=== PATIENT | male | born 1995 | race Caucasian/White ===

== ENCOUNTER 2021-06-14 17:22 | Emergency (ER) | payer MEDICAID, SELFPAY ==
[2021-06-14 18:17] VITALS: BP 124/74; PULSE 95; RESP 18; TEMP 36.9; O2SAT 99; BMI 24.4
--- NOTE | 2021-06-14 18:24 | W.ED.DENTAL ---
HPI - Dental/Oral General: Chief complaint: Dental/Oral Stated complaint: Severe toothache Time Seen by Provider: 06/14/21 17:48 Source: patient Mode of arrival: ambulatory Limitations: no limitations History of Present Illness: 25-year-old male states has been having right upper molar pain over the last 2 to 3 days he states he has an appointment with the dentist next week but states the pain is gotten worse throughout the night. He states that he has been told he needs to have a tooth pulled he denies any fever denies any trismus pain currently is a 7 out of 10 denies any worsening improving factors. Associated symptoms: Denies fever(s) Review of Systems Const: Denies: fever(s), chills, body aches or change in appetite Eyes: Denies: blurry vision or eye discomfort ENMT: Reports: dental pain Card: Denies: chest pain Resp: Denies: dyspnea GI: Denies: abdominal pain, nausea, vomiting or diarrhea : Denies: dysuria Musc: Denies: neck pain or back pain Skin/Breast: Denies: rash Neuro: Denies: headache(s) Psych: Denies: depression Alex/Lymph: Denies: easy bruising All/Imm: Denies: urticaria PFSH ED PFSH: Medical History Post traumatic stress disorder (PTSD) Per client report, further assessment needed Social History (Updated 06/14/21 @ 18:31 by Ranjit Price MD) Alcohol intake: unknown Physical Exam Const: COMMON NORMALS: no acute distress, patient oriented x3 and healthy appearing HENMT: COMMON NORMALS: normocephalic and atraumatic HEAD & SCALP: normocephalic and atraumatic OTHER: Poor dentition some tenderness over right upper molar no trismus no abscess noticed Eye: COMMON NORMALS: Equal, round and reactive pupils present and EOMs intact bilaterally PUPIL: Yes Equal, round and reactive pupils present Neck/C-Spine: COMMON NORMALS: full ROM and supple Chest: COMMONS NORMALS: normal inspection of the chest and normal palpation of entire chest wall Resp: COMMON NORMALS: normal respiratory effort, No retractions, No use of accessory muscles and clear to auscultation bilaterally AUSCULTATION: clear to auscultation bilaterally Cardio: COMMON NORMALS: regular rate, regular rhythm and No murmurs present (Cardio) RATE: regular rate RHYTHM: regular rhythm GI: COMMON NORMALS: Normal to inspection, nondistended, normoactive bowel sounds present, Soft to palpation, non-tender and no masses PALPATION: Yes Soft to palpation Extremity: COMMON NORMALS: normal to inspection and full ROM Neuro: COMMON NORMALS: patient oriented x3, moves all extremities and no focal motor deficits Psych: COMMON NORMALS: mental status grossly normal, Normal thought process present and cooperative THOUGHT PROCESS: Normal thought process present Skin: COMMON NORMALS: no rashes or lesions noted and no wounds GENERAL SKIN EXAM: no rashes or lesions noted Course Vital Signs: Vital signs: Vital Signs Temperature 98.5 F 06/14/21 18:17 Pulse Rate 95 06/14/21 18:17 Respiratory Rate 18 06/14/21 18:17 Blood Pressure 124/74 06/14/21 18:17 Pulse Oximetry 99 06/14/21 18:17 MDM - Dental/Oral Medical Decision Making Patient presents here with dental pain he has no abscess or trismus he has follow-up with dentist we will place him on antibiotics along with Naprosyn he is stable for discharge return if worsening. Discharge Plan Discharge Patient Disposition: Home Clinical Impression: Toothache Condition: Stable Prescriptions: New cephalexin 500 mg capsule 500 mg PO TID 7 Days Qty: 21 0RF naproxen [Naprosyn] 500 mg tablet 500 mg PO BID PRN (Reason: pain) Qty: 20 0RF Discharge Orders: Discharge ED (Routine); Ordered 06/14/21 Ordered By: Ranjit Price Discharge Diet: Advance as tolerated Discharge Activity: Resume usual activity Patient Instructions: Toothache (ED) Coding Level of Care Code ED Sap Business Intelligence Consultant for Manda Holguin
[2021-06-14] MEDS: HYDROcodone-acetaminophen 5-325 mg Tablet 1 TAB PO (18:30)
== END 2021-06-14 18:33 | disposition home or self-care (01) ==
PROVIDERS: Emergency Provider Emergency Medicine
DX: K08.89 Other specified disorders of teeth and supporting structures (principal)
CPT/HCPCS: 99283

== ENCOUNTER 2021-06-30 17:54 | Emergency (ER) | payer MEDICAID, SELFPAY ==
[2021-06-30 18:17] VITALS: BP 146/87; PULSE 89; RESP 18; TEMP 37.3; O2SAT 99; BMI 24.4
--- NOTE | 2021-06-30 18:30 | W.ED.DENTAL ---
HPI - Dental/Oral General: Chief complaint: Dental/Oral Stated complaint: Headache and tooth pain Time Seen by Provider: 06/30/21 18:30 History of Present Illness: 25-year-old male patient comes in with right side uppermost jaw pain secondary to a bad tooth. Patient reports pain been worse for the last 2 days. Patient appears nontoxic. Patient appears in mild to moderate pain. Review of Systems General: Reports: 10 or more systems reviewed and unremarkable except in HPI and below ENMT: Reports: dental pain Card: Denies: chest pain Resp: Denies: dyspnea GI: Denies: nausea or vomiting Skin/Breast: Denies: rash PFSH ED PFSH: Medical History (Updated 06/30/21 @ 18:36 by CONSUELO Souza) Post traumatic stress disorder (PTSD) Per client report, further assessment needed Psychiatric care Social History (Updated 06/14/21 @ 18:31 by Ranjit Price MD) Alcohol intake: unknown Physical Exam Const: COMMON NORMALS: alert HENMT: COMMON NORMALS: normocephalic HEAD & SCALP: normocephalic TEETH & GINGIVA: Yes poor dentition THROAT: posterior oropharynx normal Resp: COMMON NORMALS: normal respiratory effort Cardio: COMMON NORMALS: regular rate RATE: regular rate Extremity: COMMON NORMALS: normal to inspection Neuro: SENSORIUM/ORIENTATION: Yes alert Skin: COMMON NORMALS: no rashes or lesions noted GENERAL SKIN EXAM: no rashes or lesions noted Course Vital Signs: Vital signs: Vital Signs Temperature 99.1 F 06/30/21 18:17 Pulse Rate 89 06/30/21 18:17 Respiratory Rate 18 06/30/21 18:17 Blood Pressure 146/87 06/30/21 18:17 Pulse Oximetry 99 06/30/21 18:17 MDM - Dental/Oral Medical Decision Making 25-year-old male comes in today for complaints of right upper molar pain. Patient reports a fractured tooth and decay which occasionally will give him pain. Patient reports for the last 2 days he has had increasing pain and discomfort. On exam patient has poor dentition with a significantly decayed molar to the right upper jaw. It appears to be the third molar. No significant swelling or redness is noted. Posterior pharynx is normal. Differential diagnosis includes dental pain, dental abscess, malingering. No signs of serious infection was noted. Patient was started on Augmentin 1 tablet twice a day for 7 days. Patient was written for short course of hydrocodone and viscous lidocaine. Patient was recommended to follow-up with dentist for further care. Patient reported understanding. Discharge Plan Discharge Patient Disposition: Home Clinical Impression: Toothache Condition: Stable Prescriptions: New amoxicillin-pot clavulanate 875-125 mg tablet 1 tab PO BID Qty: 14 0RF Lidocaine Viscous 2 % solution 10 ml mucous membrane Q3H PRN (Reason: pain) Qty: 100 0RF diclofenac potassium 50 mg tablet 50 mg PO Q8H PRN (Reason: pain) Qty: 10 0RF hydrocodone-acetaminophen 5-325 mg tablet 1 tab PO Q6H PRN (Reason: pain) Qty: 6 0RF No Action buprenorphine-naloxone [Suboxone] 4-1 mg film 1 film sublingual DAILY 0RF paroxetine HCl [Paxil] 20 mg tablet 20 mg PO DAILY 0RF hydroxyzine HCl 50 mg tablet 50 mg PO TID 0RF baclofen 10 mg tablet 10 mg PO DAILY 0RF Naprosyn 500 mg tablet 500 mg PO BID PRN (Reason: pain) Qty: 20 0RF Discharge Orders: Discharge ED (Routine); Ordered 06/30/21 Ordered By: Jose Manuel Hamilton Discharge Diet: Usual diet Discharge Activity: Increase activity as tolerated Patient Instructions: Toothache (ED) Activity Restrictions/Additional Instructions: Take medications as directed. Drink plenty of water with medicine. Follow-up with primary care for further instruction. Return to ER for new concerns. Coding Level of Care Code ED Relief Docking Master for Manda Holguin
[2021-06-30] MEDS: amoxicillin-clav 875-125 mg Tablet 1 TAB PO (18:52)
[2021-06-30] MEDS: lidocaine 2% viscous 15 mL UDC 10 ML MUCOUS MEM (18:52)
== END 2021-06-30 18:53 | disposition home or self-care (01) ==
PROVIDERS: Emergency Provider Nurse Practitioner Family
DX: K08.89 Other specified disorders of teeth and supporting structures (principal)
CPT/HCPCS: 99283

== ENCOUNTER → 2021-07-24 14:44 | Outpatient (BNVA) | payer OTHER, MEDICAID, SELFPAY | PROVIDERS: Visit Provider Counselor Mental Health | DX: F33.1 Major depressive disorder, recurrent, moderate (principal); F15.21 Other stimulant dependence, in remission | CPT/HCPCS: 90834 ==

== ENCOUNTER → 2021-08-05 15:39 | Outpatient (BNVA) | payer OTHER, MEDICAID, SELFPAY | PROVIDERS: Visit Provider Counselor Mental Health | DX: F33.1 Major depressive disorder, recurrent, moderate (principal); F15.21 Other stimulant dependence, in remission | CPT/HCPCS: 90834 ==

== ENCOUNTER → 2021-08-10 13:28 | Outpatient (BNVA) | payer OTHER, SELFPAY | PROVIDERS: Visit Provider Psychiatry & Neurology Psychiatry | DX: F41.1 Generalized anxiety disorder (principal); F33.1 Major depressive disorder, recurrent, moderate; F11.20 Opioid dependence, uncomplicated; Z79.899 Other long term (current) drug therapy; F15.20 Other stimulant dependence, uncomplicated | CPT/HCPCS: 80307; 99204 ==

== ENCOUNTER 2021-09-07 06:38 | Day surgery (SDC) | payer MEDICAID, SELFPAY ==
[2021-09-04 10:00] VITALS: BMI 22.9
--- NOTE | 2021-09-07 05:57 | P.ANESASSM_ITS ---
Pre-Anesthetic Assessment Height/Weight: Height 1.85 m Weight 78.925 kg Preop Diagnosis: coffee ground Operation Date: 09/07/21 08:15 Proposed Procedures p EGD 79642 K92.0(Not Applicable) - Fan Leblanc MD Familial anesthetic complications: none Last intake: Beta carl held for 2 days Social Tobacco (Vapes) and No alcohol Hx of methamphetamine use disorder and opioid use disorder severe Exam alert, oriented x 3, clear to auscultation bilaterally and regular rate & rhythm Airway Submandibular: within normal limits Mallampati: Class II Dentition: chipped Comments: Comments: Missing most teeth, very poor dentition Pulmonary None reported CV/HEM None reported None reported Hepatic None reported GI Gastroesophageal Reflux Disease (Well controlled) Coffee ground emesis Metabolic None reported Musc/skel None reported Neuropsych Anxiety and Depression Hx of PTSD Anesthetic Plan ASA status: 3 (26 year old male with hx of smoking, methampheatamine and opioid abuse with depression and anxiety with recent coffee ground emesis ) Anesthesia: Anesthesia Evaluation, General and MAC Other: I discussed with the patient risks, goals, and benefits of MAC and general anesthesia. We discussed spectrum of MAC anesthesia including conversion to general as well as possibility of recall of intraoperative stimuli including discomfort/pain. Patient agrees to proceed with MAC. Medications/Allergies Home Medications Medication Instructions Recorded Confirmed Last Taken Type baclofen 10 mg tablet 10 mg PO DAILY 06/30/21 09/04/21 09/05/21 History buprenorphine 8 mg-naloxone 2 mg 1.5 tab SUBLINGUAL DAILY #45 tab 08/10/21 09/04/21 09/06/21 Rx sublingual tablet propranolol 20 mg tablet 20 mg PO BID PRN #60 tab 08/10/21 09/04/21 09/05/21 Rx omeprazole 40 mg capsule,delayed 40 mg PO DAILY #30 cap 09/02/21 09/04/21 09/05/21 Rx release paroxetine HCl 40 mg tablet (Paxil) 40 mg PO DAILY 09/07/21 09/04/21 09/06/21 History Allergies Allergy/AdvReac Type Severity Reaction Status Date / Time lactase AdvReac Intermediate ADR-Diarrhea Verified 09/03/21 13:36 & constipation [facility] Anesthesia Medical History Post traumatic stress disorder (PTSD) Per client report, further assessment needed Psychiatric care Social History Smoking and tobacco status: current every day smoker (vape) e-cigarettes E- Cigarette Details: vaporizer device and with nicotine E-cig/vape details: Refill/ 2 - 3 days. Quit status (tobacco): has tried quititng Number of times tried to quit tobacco: 2 Second hand smoke exposure: No Alcohol intake: former Year of sobriety/quit date alcohol: 2020 Data Anesthesia Cardiac Studies: No Data to Display
[2021-09-07 06:56] VITALS: BP 137/95; PULSE 76; RESP 16; TEMP 36.6; O2SAT 99
[2021-09-07] MEDS: sodium chloride 0.9% 1,000 ML 30 ML IV (07:02)
--- NOTE | 2021-09-07 07:16 | P.HP_ITS ---
Same Day Surgery H&P Indication for Procedure/HPI DATE OF PROCEDURE: September 07, 2021 CHIEF COMPLAINT/INDICATIONFOR SURGICAL PROCEDURE: Hematemesis PREOP DIAGNOSIS: Coffee ground emesis. PLANNED PROCEDURE: Operation Date: 09/07/21 08:15 Proposed Procedures p EGD 53740 K92.0(Not Applicable) - Fan Leblanc MD Medications/Allergies* Home Medications Medication Instructions Recorded Confirmed Type baclofen 10 mg tablet 10 mg PO DAILY 06/30/21 09/04/21 History paroxetine HCl 40 mg tablet (Paxil) 40 mg PO DAILY 09/07/21 09/04/21 History Allergies/Adverse Reactions Allergy/AdvReac Type Severity Reaction Status Date / Time lactase AdvReac Intermediate ADR-Diarrhea Verified 09/03/21 13:36 & constipation Current Medications: Generic Name Dose Route Start Last Admin Trade Name Freq PRN Reason Stop Dose Admin Sodium Chloride 1,000 mls @ 30 mls/hr 09/07/21 07:00 09/07/21 07:02 Sodium Chloride 0.9% IV 09/08/21 06:59 30 mls/hr .Q24H GARCÍA Administration Pertinent History/Comorbid Conditions* Medical History (Updated 09/03/21 @ 13:54 by Fan Leblanc MD) Post traumatic stress disorder (PTSD) Per client report, further assessment needed Psychiatric care Social History Smoking and tobacco status: current every day smoker (vape) e-cigarettes E- Cigarette Details: vaporizer device and with nicotine E-cig/vape details: Refill/ 2 - 3 days. Quit status (tobacco): has tried quititng Number of times tried to quit tobacco: 2 Second hand smoke exposure: No Alcohol intake: former Year of sobriety/quit date alcohol: 2020 Pertinent Exam Findings alert, oriented x 3, clear to auscultation bilaterally, regular rate & rhythm, operative site marked and procedure specific exam findings Recommendations Surgery/Procedure today Coding Level of Care Code Acute Technical Support Technician for Manda Holguin
[2021-09-07 08:36] VITALS: BP 121/79; PULSE 74; RESP 14; TEMP 36.3; O2SAT 96
[2021-09-07 08:49] VITALS: BP 116/76; PULSE 75; RESP 18; O2SAT 97
--- NOTE | 2021-09-07 13:39 | ANE.PACU2 ---
Inpatient post-anesthesia follow up: Airway intact: Yes Vital signs: Temperature 97.4 F Pulse Rate 75 Respiratory Rate 18 Blood Pressure 116/76 Pulse Oximetry 97 Oxygen Delivery Me thod Room Air Oxygen Flow Rate Fraction of Inspir ed Oxygen Hydration adequate: Yes Nausea and vomiting: No Pain level: 1 Mental status: Baseline
[2021-09-08 10:46] LABS: H. Pylori / CLO Test Negative
== END 2021-09-07 08:58 | disposition home or self-care (01) ==
PROVIDERS: Visit Provider Internal Medicine
PROC: 0DJ08ZZ Inspection of Upper Intestinal Tract, Via Natural or Artificial Opening Endoscopic (ICD-10-PCS; CPT 43235; principal; 2021-09-07 08:15)
DX: K92.0 Hematemesis (principal); F17.290 Nicotine dependence, other tobacco product, uncomplicated; K21.00 Gastro-esophageal reflux disease with esophagitis, without bleeding; K29.70 Gastritis, unspecified, without bleeding
CPT/HCPCS: 43239; 87077; J2704; J7030

== ENCOUNTER → 2021-09-08 15:15 | Outpatient (BNVA) | payer OTHER, SELFPAY | PROVIDERS: Visit Provider Psychiatry & Neurology Psychiatry | DX: F11.20 Opioid dependence, uncomplicated (principal); Z79.899 Other long term (current) drug therapy; F33.1 Major depressive disorder, recurrent, moderate; F15.20 Other stimulant dependence, uncomplicated; F41.1 Generalized anxiety disorder | CPT/HCPCS: 80307 ==

== ENCOUNTER 2021-10-23 15:31 | Emergency (ER) | payer MEDICAID, SELFPAY ==
[2021-10-23 16:05] VITALS: BP 129/62; PULSE 102; RESP 16; TEMP 36.9; O2SAT 97; BMI 24.4
[2021-10-23 18:07] LABS: SARS Covid-2 Antigen Negative (Negative)
--- NOTE | 2021-10-23 18:27 | ED_ITS ---
HPI - Weakness General: Chief complaint: Weakness Stated complaint: Covid symptoms, not been tested yet Time Seen by Provider: 10/23/21 18:20 History of Present Illness: Patient is a 26-year-old male comes to the ED with headache, body aches and nausea. Symptoms started 2 days ago. Today patient said he is feeling better and is able to keep p.o. food and fluids down. Endorses having fevers as well. Denies any cough or shortness of breath. He stated that today he feels a lot better than he did 2 days ago. Associated symptoms: Reports fever(s), nausea and vomiting; Denies chest pain, chills, dysuria or headache(s) Review of Systems Const: Reports: fever(s) and body aches; Denies: chills or fatigue Eyes: Denies: change in vision or eye discomfort ENMT: Denies: throat pain, odynophagia, nasal discharge or nasal congestion Card: Denies: chest pain, palpitations, edema, swelling of feet/ankles, dyspnea on exertion or orthopnea Resp: Denies: dyspnea, productive cough or non-productive cough GI: Reports: nausea and vomiting; Denies: abdominal pain, diarrhea, constipation or hematochezia : Denies: flank pain, difficulty urinating, dysuria or hematuria Musc: Denies: neck pain, back pain or extremity swelling Skin/Breast: Denies: rash or new lesions Neuro: Denies: headache(s), numbness in extremities or weakness in extremities PFSH ED PFSH: Medical History Post traumatic stress disorder (PTSD) Per client report, further assessment needed Psychiatric care Social History Smoking and tobacco status: current every day smoker (vape) e-cigarettes E- Cigarette Details: vaporizer device and with nicotine E-cig/vape details: Refill/ 2 - 3 days. Quit status (tobacco): has tried quititng Number of times tried to quit tobacco: 2 Second hand smoke exposure: No Smoking risk assessment/counseling performed?: No Alcohol intake: former Year of sobriety/quit date alcohol: 2020 Desire information about alcohol rehabilitation?: No Counseling given: No Desire information about substance/drug rehabilitation?: No Counseling given: No Physical Exam Const: COMMON NORMALS: no acute distress, patient oriented x3, healthy appearing and alert GENERAL APPEARANCE: cooperative and comfortable HENMT: COMMON NORMALS: normocephalic HEAD & SCALP: normocephalic MOUTH: Normal oral and palatal mucosa present THROAT: posterior oropharynx normal and uvula midline Neck/C-Spine: COMMON NORMALS: supple GENERAL: Yes normal visual inspection Resp: COMMON NORMALS: normal respiratory effort, No retractions, No use of accessory muscles and clear to auscultation bilaterally AUSCULTATION: clear to auscultation bilaterally Cardio: COMMON NORMALS: regular rate, regular rhythm, S1 normal heart sound present, S2 normal heart sound present, No gallops present (Cardio), No clicks present (Cardio), No murmurs present (Cardio) and Peripheral pulses 2+ throughout RATE: regular rate RHYTHM: regular rhythm HEART SOUNDS: S1 normal heart sound present and S2 normal heart sound present PERIPHERAL PULSES: Peripheral pulses 2+ throughout GI: COMMON NORMALS: Normal to inspection, nondistended, normoactive bowel sounds present, Soft to palpation, non-tender and no masses PALPATION: Yes Soft to palpation : COMMON NORMALS: Yes no CVA tenderness BLADDER/KIDNEY EXAM: Yes no CVA tenderness Back/Pelvis: COMMON NORMALS: no CVA tenderness Extremity: COMMON NORMALS: normal to inspection Neuro: COMMON NORMALS: patient oriented x3 SENSORIUM/ORIENTATION: Yes alert GAIT: Yes Normal gait present Skin: GENERAL SKIN EXAM: dry skin Course Vital Signs: Vital signs: Vital Signs Temperature 98.5 F 10/23/21 16:05 Pulse Rate 102 H 10/23/21 16:05 Respiratory Rate 16 10/23/21 16:05 Blood Pressure 129/62 10/23/21 16:05 Pulse Oximetry 97 10/23/21 16:05 Oxygen Delivery Me thod 10/23/21 16:05 MDM - Weakness Medical Decision Making Patient is a 26-year-old male comes to the ED with fever, headache, body aches and nausea and vomiting. Symptoms started 2 days ago. Today he is feeling a lot better but is needing a COVID test. Denies any cough or shortness of breath. Vitals are stable. Patient appears nontoxic in no acute distress or pain. Rest of exam is benign. COVID test was negative. Patient was stable for discharge home and diagnosed with viral syndrome. Told to follow-up with PCP in the next week for reevaluation. Return to ED precautions given. Patient understood agree with plan. Lab Data I reviewed the patient's lab results. Laboratory Results SARS-CoV-2 Ag (Rapid) Negative (Negative) 10/23/21 17:11 Discharge Plan Discharge Patient Disposition: Home Clinical Impression: Viral syndrome Condition: Stable Prescriptions: No Action baclofen 10 mg tablet 10 mg PO DAILY Qty: 30 2RF Paxil 40 mg tablet 40 mg PO DAILY Qty: 30 2RF buprenorphine-naloxone 8-2 mg tablet, sublingual 1.5 tab sublingual DAILY Qty: 45 2RF pantoprazole 40 mg tablet,delayed release (DR/EC) 40 mg PO DAILY Qty: 90 8RF Discharge Orders: Discharge ED (Routine); Ordered 10/23/21 Ordered By: Todd Vieira Discharge Diet: Regular Discharge Activity: Resume usual activity Patient Instructions: Viral Syndrome (ED) Activity Restrictions/Additional Instructions: Follow-up with medical provider as directed in the next 5 to 7 days for reevaluation. Take [id number] Tylenol or Motrin for any fevers. Return to the ER or your medical provider if condition worsens. Please read and understand discharge instructions. Thank you for choosing [facility] for your healthcare needs today. Please realize this is an emergency room and that we are providing you with a medical screening exam and this may not be complete and all inclusive of all the testing and or work up that you may need to determine your ailment or severity of your illness. It is very important that you follow up as instructed or that you return to the Emergency Department should you have concerns or if your condition changes or worsens in any way. Coding Level of Care Code ED Hydrotel Operator for Manda Holguin Exam Comprehensive
== END 2021-10-23 18:35 | disposition home or self-care (01) ==
PROVIDERS: Physician Assistant; Emergency Provider Physician Assistant
DX: B34.9 Viral infection, unspecified (principal); Z20.822 Contact with and (suspected) exposure to COVID-19; F17.290 Nicotine dependence, other tobacco product, uncomplicated
CPT/HCPCS: 87426; 99282

== ENCOUNTER → 2021-12-01 16:06 | Outpatient (BNVA) | payer MEDICAID, SELFPAY | PROVIDERS: Visit Provider Psychiatry & Neurology Psychiatry | DX: F11.20 Opioid dependence, uncomplicated (principal); Z79.899 Other long term (current) drug therapy; F15.20 Other stimulant dependence, uncomplicated; F41.1 Generalized anxiety disorder; F33.1 Major depressive disorder, recurrent, moderate | CPT/HCPCS: 80307 ==

== ENCOUNTER 2022-01-07 16:37 | Emergency (ER) | payer MEDICAID, SELFPAY ==
[2022-01-07 16:43] VITALS: BP 121/71; PULSE 110; RESP 16; O2SAT 98
[2022-01-07] MEDS: ondansetron 4 MG Tablet PO (17:26)
[2022-01-07 17:34] LABS: Rapid Strep A Test Negative (Negative)
[2022-01-07 17:39] LABS: Influenza A by IFA negative (Negative); Influenza B by IFA negative (Negative)
[2022-01-07 17:43] LABS: SARS Covid-2 Antigen Negative (Negative)
--- NOTE | 2022-01-07 17:48 | XRR_ITS ---
PROCEDURE INFORMATION: Exam: XR Chest Exam date and time: 01/07/2022 7:02 PM Age: 26 years old Clinical indication: Cough TECHNIQUE: Imaging protocol: Radiologic exam of the chest. Views: 1 view. COMPARISON: No relevant prior studies available. FINDINGS: Lungs: Unremarkable. No consolidation. Pleural spaces: Unremarkable. No pleural effusion. No pneumothorax. Heart/Mediastinum: Unremarkable. No cardiomegaly. Bones/joints: Unremarkable. XR/XR chest 1V portable [id number] IMPRESSION: No acute findings.
--- NOTE | 2022-01-07 22:06 | ED_ITS ---
HPI - Nausea/Vomiting/Diarrhea General: Chief complaint: Nausea/Vomiting/Diarrhea Stated complaint: Sick, some worse than others Time Seen by Provider: 01/07/22 16:50 History of Present Illness: Patient was ama [facility] ED PFSH: Medical History Post traumatic stress disorder (PTSD) Per client report, further assessment needed Psychiatric care Social History (Updated 12/29/21 @ 10:28 by Freddy Olivares LPN) Smoking and tobacco status: current every day smoker (vape) e-cigarettes E- Cigarette Details: vaporizer device and with nicotine E-cig/vape details: Refill/ 2 - 3 days. Quit status (tobacco): has tried quititng Number of times tried to quit tobacco: 2 Second hand smoke exposure: No Smoking risk assessment/counseling performed?: No Alcohol intake: former Year of sobriety/quit date alcohol: 2020 Desire information about alcohol rehabilitation?: No Counseling given: No Desire information about substance/drug rehabilitation?: No Counseling given: No Course Vital Signs: Vital signs: Vital Signs Pulse Rate 110 H 01/07/22 16:43 Respiratory Rate 16 01/07/22 16:43 Blood Pressure 121/71 01/07/22 16:43 Pulse Oximetry 98 01/07/22 16:43 Oxygen Delivery Me thod 01/07/22 16:43 MDM - Nausea/Vomiting/Diarrhea Medical Decision Making AMA Lab Data Radiology Impressions Chest X-Ray 01/07/22 17:48 IMPRESSION: No acute findings. Laboratory Results Influenza Type A Ag negative (Negative) 01/07/22 17:00 Influenza Type B Ag negative (Negative) 01/07/22 17:00 SARS-CoV-2 Ag (Rapid) Negative (Negative) 01/07/22 17:00 Group A Strep Rapid Negative (Negative) 01/07/22 17:00 Discharge Plan Discharge Patient Disposition: Left Against Medical Advice Clinical Impression: Coffee ground emesis Prescriptions: No Action Paxil 40 mg tablet 40 mg PO DAILY Qty: 30 2RF baclofen 10 mg tablet 10 mg PO DAILY Qty: 30 2RF buprenorphine-naloxone 8-2 mg tablet, sublingual 2 tab sublingual DAILY Qty: 60 1RF pantoprazole 40 mg tablet,delayed release (DR/EC) 40 mg PO DAILY Qty: 90 8RF Coding Level of Care Code ED Game Warden for Manda Holguin
== END 2022-01-07 18:39 | disposition left against medical advice (07) ==
PROVIDERS: Emergency Provider Registered Nurse
DX: F17.290 Nicotine dependence, other tobacco product, uncomplicated (principal)
CPT/HCPCS: 71045; 87081; 87426; 87804; 87880; 99284; Q0162

== ENCOUNTER 2022-01-08 19:58 | Emergency (ER) | payer MEDICAID, SELFPAY ==
[2022-01-08 20:05] VITALS: PULSE 110; RESP 16; TEMP 36.8; O2SAT 97
--- NOTE | 2022-01-08 20:57 | ED_ITS ---
HPI - Nausea/Vomiting/Diarrhea General: Chief complaint: Nausea/Vomiting/Diarrhea Stated complaint: N/V Time Seen by Provider: 01/08/22 20:53 Source: patient Mode of arrival: ambulatory Limitations: no limitations History of Present Illness: 26-year-old male states he been having nausea vomiting over the last 2 to 3 days. He states has not been able to tolerate any p.o.'s been having some abdominal cramping he denies any fevers he denies any worsening proving factors. He denies any severe abdominal pain. Associated nausea: Yes Associated symtoms: Reports nausea; Denies chest pain, dysuria or headache(s) Review of Systems Const: Denies: fever(s), chills, body aches or change in appetite Eyes: Denies: blurry vision or eye discomfort ENMT: Denies: throat pain or dental pain Card: Denies: chest pain Resp: Denies: dyspnea GI: Reports: nausea and vomiting : Denies: dysuria Musc: Denies: neck pain or back pain Skin/Breast: Denies: rash Neuro: Denies: headache(s) Psych: Denies: depression Alex/Lymph: Denies: easy bruising All/Imm: Denies: urticaria PFSH ED PFSH: Medical History Post traumatic stress disorder (PTSD) Per client report, further assessment needed Psychiatric care Social History Smoking and tobacco status: current every day smoker (vape) e-cigarettes E- Cigarette Details: vaporizer device and with nicotine E-cig/vape details: Refill/ 2 - 3 days. Quit status (tobacco): has tried quititng Number of times tried to quit tobacco: 2 Second hand smoke exposure: No Smoking risk assessment/counseling performed?: No Alcohol intake: former Year of sobriety/quit date alcohol: 2020 Desire information about alcohol rehabilitation?: No Counseling given: No Desire information about substance/drug rehabilitation?: No Counseling given: No Physical Exam Const: COMMON NORMALS: no acute distress, patient oriented x3 and healthy appearing HENMT: COMMON NORMALS: normocephalic and atraumatic HEAD & SCALP: normocephalic and atraumatic Eye: COMMON NORMALS: Equal, round and reactive pupils present and EOMs intact bilaterally PUPIL: Yes Equal, round and reactive pupils present Neck/C-Spine: COMMON NORMALS: full ROM and supple Chest: COMMONS NORMALS: normal inspection of the chest and normal palpation of entire chest wall Resp: COMMON NORMALS: normal respiratory effort, No retractions, No use of accessory muscles and clear to auscultation bilaterally AUSCULTATION: clear to auscultation bilaterally Cardio: COMMON NORMALS: regular rate, regular rhythm and No murmurs present (Cardio) RATE: regular rate RHYTHM: regular rhythm GI: COMMON NORMALS: Normal to inspection, nondistended, normoactive bowel soun ds present, Soft to palpation, non-tender and no masses PALPATION: Yes Soft to palpation Extremity: COMMON NORMALS: normal to inspection and full ROM Neuro: COMMON NORMALS: patient oriented x3, moves all extremities and no focal motor deficits Psych: COMMON NORMALS: mental status grossly normal, Normal thought process present and cooperative THOUGHT PROCESS: Normal thought process present Skin: COMMON NORMALS: no rashes or lesions noted and no wounds GENERAL SKIN EXAM: no rashes or lesions noted Course Vital Signs: Vital signs: Vital Signs Temperature 98.2 F 01/08/22 22:24 Pulse Rate 86 01/08/22 22:06 Respiratory Rate 16 01/08/22 22:06 Blood Pressure 120/72 01/08/22 22:06 Pulse Oximetry 98 01/08/22 22:06 Oxygen Delivery Me thod 01/08/22 21:37 MDM - Nausea/Vomiting/Diarrhea Medical Decision Making Patient presents here with vomiting along with diarrhea likely has a gastroenteritis he is well-appearing here abdominal exam is benign his blood work is normal no signs of acute surgical abdomen he is stable for discharge he is able tolerate p.o. here after meds we will prescribe him Zofran for home. Lab Data 01/08/22 21:00 01/08/22 21:00 Laboratory Results WBC 11.5 10^3/uL (4.0-10.0) H 01/08/22 21:00 RBC 5.44 10^6/uL (4.1-5.3) H 01/08/22 21:00 Hgb 16.2 g/dL (11.7-16.6) 01/08/22 21:00 Hct 46.4 % (42.0-52.0) 01/08/22 21:00 MCV 85.3 fl (80-94) 01/08/22 21:00 MCH 29.8 pg (28.0-34.0) 01/08/22 21:00 MCHC 34.9 g/dL (30.0-36.0) 01/08/22 21:00 RDW 11.6 % (12.1-15.1) L 01/08/22 21:00 Plt Count 457 10^3/cmm (130-400) H 01/08/22 21:00 MPV 9.0 fL (7.4-10.4) 01/08/22 21:00 Neut % (Auto) 79.5 % 01/08/22 21:00 Lymph % (Auto) 14.0 % 01/08/22 21:00 [place] % (Auto) 5.9 % 01/08/22 21:00 Eos % (Auto) 0.0 % 01/08/22 21:00 Baso % (Auto) 0.3 % 01/08/22 21:00 Neut # (Auto) 9.17 10^3/uL (1.8-7.7) H 01/08/22 21:00 Lymph # (Auto) 1.6 10^3/uL (0.8-4.8) 01/08/22 21:00 [place] # (Auto) 0.7 10^3/uL (0.2-0.9) 01/08/22 21:00 Eos # (Auto) 0.0 10^3/uL (0.0-0.8) 01/08/22 21:00 Baso # (Auto) 0.0 10^3/uL (0.0-0.1) 01/08/22 21:00 Nucleated RBC % (auto) 0 % 01/08/22 21:00 Nucleated RBCs # 0.0 /100WBC 01/08/22 21:00 Sodium 141 mmol/L (136-145) 01/08/22 21:00 Potassium 3.9 mmol/L (3.5-5.1) 01/08/22 21:00 Chloride 99 mmol/L (98-107) 01/08/22 21:00 Carbon Dioxide 26 mmol/L (22-29) 01/08/22 21:00 Anion Gap 19.9 (5-19) H 01/08/22 21:00 BUN 21 mg/dL (6-20) H 01/08/22 21:00 Creatinine 0.9 mg/dL (0.7-1.2) 01/08/22 21:00 GFR Calculation 101.2 mL/min (90-130) 01/08/22 21:00 Glucose 90 mg/dL (65-115) 01/08/22 21:00 Calculated Osmolality 295 mOsm/kg (285-295) 01/08/22 21:00 Calcium 10.4 mg/dL (8.5-10.5) 01/08/22 21:00 Total Bilirubin 0.4 mg/dL (0.15-1.2) 01/08/22 21:00 AST 19 U/L (0-40) 01/08/22 21:00 ALT 24 U/L (0-41) 01/08/22 21:00 Alkaline Phosphatase 125 U/L (40-130) 01/08/22 21:00 Total Protein 9.0 g/dL (6.6-8.7) H 01/08/22 21:00 Albumin 4.9 g/dL (3.5-5.2) 01/08/22 21:00 Globulin 4.1 g/dL (1.3-4.6) 01/08/22 21:00 Lipase 20 U/L (13-60) 01/08/22 21:00 Discharge Plan Discharge Patient Disposition: Home Clinical Impression: Vomiting Qualifiers: Vomiting type: unspecified Nausea presence: with nausea Qualified Code(s): R11.2 - Nausea with vomiting, unspecified Condition: Stable Prescriptions: New ondansetron 4 mg tablet,disintegrating 4 mg PO Q6H PRN (Reason: nausea and vomiting) Qty: 14 0RF No Action Paxil 40 mg tablet 40 mg PO DAILY Qty: 30 2RF baclofen 10 mg tablet 10 mg PO DAILY Qty: 30 2RF buprenorphine-naloxone 8-2 mg tablet, sublingual 2 tab sublingual DAILY Qty: 60 1RF pantoprazole 40 mg tablet,delayed release (DR/EC) 40 mg PO DAILY Qty: 90 8RF Discharge Orders: Discharge ED (Routine); Ordered 01/08/22 Ordered By: Korby Dee Discharge Diet: Advance as tolerated Discharge Activity: Resume usual activity Patient Instructions: Acute Nausea and Vomiting (ED) Stand Alone Forms: Work/School Release Coding Level of Care Code ED Claims Collector for Manda Fwd Exam Comprehensive
[2022-01-08 21:08] LABS: Basophils % 0.3 %; Hematocrit 46.4 % (42.0-52.0); Hemoglobin 16.2 g/dL (11.7-16.6); Lymphocytes # 1.6 10^3/uL (0.8-4.8); Mean Corpuscular HGB Conc 34.9 g/dL (30.0-36.0); Mean Corpuscular Hemoglobin 29.8 pg (28.0-34.0); Mean Corpuscular Volume 85.3 fl (80-94); Monocytes # 0.7 10^3/uL (0.2-0.9); Monocytes % 5.9 %; Neutrophils # 9.17 10^3/uL (1.8-7.7); Neutrophils % 79.5 %; Nucleated Red Blood Cells % 0 %; Platelet Count 457 10^3/cmm (130-400); Red Blood Count 5.44 10^6/uL (4.1-5.3); Red Cell Distribution Width 11.6 % (12.1-15.1); White Blood Count 11.5 10^3/uL (4.0-10.0)
[2022-01-08] MEDS: sodium chloride 0.9% 1,000 ML 999 ML IV (21:33)
[2022-01-08] MEDS: ondansetron 2 mg/ML SDV 2 mL 4 MG IVP (21:35)
[2022-01-08 21:37] VITALS: BP 130/76; PULSE 68; RESP 16; O2SAT 99
[2022-01-08 21:38] LABS: Alanine Aminotransferase 24 U/L (0-41); Albumin Level 4.9 g/dL (3.5-5.2); Alkaline Phosphatase 125 U/L (40-130); Anion Gap 19.9 (5-19); Aspartate Amino Transferase 19 U/L (0-40); Blood Urea Nitrogen 21 mg/dL (6-20); Calcium 10.4 mg/dL (8.5-10.5); Carbon Dioxide 26 mmol/L (22-29); Chloride 99 mmol/L (98-107); Globulin 4.1 g/dL (1.3-4.6); Glomerular Filtration Rate 101.2 mL/min (90-130); Glucose 90 mg/dL (65-115); Lipase 20 U/L (13-60); Osmolality Calculated 295 mOsm/kg (285-295); Potassium 3.9 mmol/L (3.5-5.1); Sodium 141 mmol/L (136-145); Total Bilirubin 0.4 mg/dL (0.15-1.2)
[2022-01-08] MEDS: diphenhydrAMINE 50 mg/mL SDV 1mL IVP (21:59)
[2022-01-08] MEDS: metoclopramide 5 mg/mL SDV 2 mL 10 MG IVP (21:59)
[2022-01-08 22:06] VITALS: BP 120/72; PULSE 86; RESP 16; O2SAT 98
[2022-01-08 22:24] VITALS: TEMP 36.8
[2022-01-08 22:36] VITALS: BP 120/72; PULSE 72; RESP 16; TEMP 36.8; O2SAT 100
== END 2022-01-08 22:33 | disposition home or self-care (01) ==
PROVIDERS: Emergency Provider Emergency Medicine
DX: R11.2 Nausea with vomiting, unspecified (principal); F17.290 Nicotine dependence, other tobacco product, uncomplicated
CPT/HCPCS: 80053; 83690; 85025; 96374; 96375; 99284; J1200; J2405; J2765; J7030

== ENCOUNTER → 2022-02-12 11:10 | Outpatient (BNVA) | payer MEDICAID, SELFPAY | PROVIDERS: PCP Family Medicine; Visit Provider Family Medicine | DX: K27.9 Peptic ulcer, site unspecified, unspecified as acute or chronic, without hemorrhage or perforation (principal); K21.9 Gastro-esophageal reflux disease without esophagitis; F41.1 Generalized anxiety disorder; F32.9 Major depressive disorder, single episode, unspecified; F15.21 Other stimulant dependence, in remission; Z79.899 Other long term (current) drug therapy; F11.91 Opioid use, unspecified, in remission | CPT/HCPCS: 80053; 85025 ==

== ENCOUNTER → 2022-03-02 14:37 | Outpatient (BNVA) | payer OTHER, SELFPAY | PROVIDERS: PCP Family Medicine; Visit Provider Psychiatry & Neurology Psychiatry | DX: Z79.899 Other long term (current) drug therapy (principal); F11.20 Opioid dependence, uncomplicated; F15.20 Other stimulant dependence, uncomplicated | CPT/HCPCS: 80307 ==

== ENCOUNTER → 2022-04-13 13:59 | Outpatient (BNVA) | payer OTHER, SELFPAY | PROVIDERS: PCP Family Medicine; Visit Provider Psychiatry & Neurology Psychiatry | DX: F11.91 Opioid use, unspecified, in remission (principal); F41.1 Generalized anxiety disorder; F32.9 Major depressive disorder, single episode, unspecified; F15.21 Other stimulant dependence, in remission; Z79.899 Other long term (current) drug therapy | CPT/HCPCS: 80307 ==

== ENCOUNTER 2022-05-06 20:01 | Emergency (ER) | payer MEDICAID, SELFPAY ==
[2022-05-06 20:09] VITALS: BP 139/93; PULSE 69; RESP 18; TEMP 36.7; O2SAT 100; BMI 23.7
[2022-05-06 21:18] LABS: Basophils % 0.5 %; Eosinophils % 0.5 %; Hematocrit 42.6 % (42.0-52.0); Hemoglobin 14.5 g/dL (11.7-16.6); Lymphocytes # 1.9 10^3/uL (0.8-4.8); Lymphocytes % 21.5 %; Mean Corpuscular Hemoglobin 29.8 pg (28.0-34.0); Mean Corpuscular Volume 87.7 fl (80-94); Mean Platelet Volume 8.9 fL (7.4-10.4); Monocytes # 0.8 10^3/uL (0.2-0.9); Neutrophils # 6.03 10^3/uL (1.8-7.7); Neutrophils % 68.3 %; Nucleated Red Blood Cells % 0 %; Platelet Count 409 10^3/cmm (130-400); Red Blood Count 4.86 10^6/uL (4.1-5.3); Red Cell Distribution Width 12.1 % (12.1-15.1); White Blood Count 8.8 10^3/uL (4.0-10.0)
[2022-05-06 21:36] LABS: Alanine Aminotransferase 17 U/L (0-41); Albumin Level 4.7 g/dL (3.5-5.2); Alkaline Phosphatase 90 U/L (40-130); Anion Gap 15.9 (5-19); Aspartate Amino Transferase 16 U/L (0-40); Blood Urea Nitrogen 22 mg/dL (6-20); Calcium 9.5 mg/dL (8.5-10.5); Carbon Dioxide 28 mmol/L (22-29); Chloride 101 mmol/L (98-107); Globulin 3.5 g/dL (1.3-4.6); Glomerular Filtration Rate 101.2 mL/min (90-130); Glucose 87 mg/dL (65-115); Lipase 25 U/L (13-60); Osmolality Calculated 295 mOsm/kg (285-295); Potassium 3.9 mmol/L (3.5-5.1); Sodium 141 mmol/L (136-145); Total Bilirubin 0.6 mg/dL (0.15-1.2); Total Protein 8.2 g/dL (6.6-8.7)
--- NOTE | 2022-05-07 00:13 | W.ED.NAVMDI ---
HPI - Nausea/Vomiting/Diarrhea General: Chief complaint: Nausea/Vomiting/Diarrhea Stated complaint: Vomiting\Not Eating Time Seen by Provider: 05/07/22 00:09 Source: patient Mode of arrival: ambulatory Limitations: no limitations History of Present Illness: 26-year-old male who states that he been having vomiting over the last 3 days he states he had a hard time tolerating any fluids or solids with multiple episodes of vomiting states he has had this in the past has a history of gastritis she denies any pain denies any fever he is well-appearing here with normal vital signs. Associated nausea: Yes Associated symtoms: Reports nausea; Denies chest pain, dysuria or headache(s) Review of Systems Const: Denies: fever(s), chills, body aches or change in appetite Eyes: Denies: blurry vision or eye discomfort ENMT: Denies: throat pain or dental pain Card: Denies: chest pain Resp: Denies: dyspnea GI: Reports: nausea and vomiting : Denies: dysuria Musc: Denies: neck pain or back pain Skin/Breast: Denies: rash Neuro: Denies: headache(s) Psych: Denies: depression Alex/Lymph: Denies: easy bruising All/Imm: Denies: urticaria PFSH ED PFSH: Medical History Amphetamine use disorder, severe, in early remission, dependence currently housed at sober living facility Major depression, chronic Methamphetamine use disorder, severe Post traumatic stress disorder (PTSD) Per client report, further assessment needed Psychiatric care Family History (Updated 04/08/22 @ 10:27 by Shahrzad Cohen LPN) Grandfather Cancer lung--maternal Other Hypertension Lung disease Psychiatric illness Stroke Denies family history of Diabetes CAD (coronary artery disease) Clotting disorder Dementia Hyperlipidemia Chronic kidney disease (CKD) Anesthesia complication Bleeding disorder Social History Smoking and tobacco status: current every day smoker (vape) e-cigarettes E-Cigarette Details: vaporizer device and with nicotine E-cig/vape details: Refill/ 2 - 3 days. Quit status (tobacco): has tried quititng Number of times tried to quit tobacco: 2 Second hand smoke exposure: No Smoking risk assessment/counseling performed?: No Alcohol intake: former Year of sobriety/quit date alcohol: 2020 Desire information about alcohol rehabilitation?: No Counseling given: No Desire information about substance/drug rehabilitation?: No Counseling given: No Lives independently: Yes Marital status: Single Number of children: 2 Current occupational status: employed Current occupation: [employer] Current gender identity: Male Special angel luis needs: No Agree to transfusion: Yes Physical Exam Const: COMMON NORMALS: no acute distress, patient oriented x3 and healthy appearing HENMT: COMMON NORMALS: normocephalic and atraumatic HEAD & SCALP: normocephalic and atraumatic Eye: COMMON NORMALS: Equal, round and reactive pupils present and EOMs intact bilaterally PUPIL: Yes Equal, round and reactive pupils present Neck/C-Spine: COMMON NORMALS: full ROM and supple Chest: COMMONS NORMALS: normal inspection of the chest and normal palpation of entire chest wall Resp: COMMON NORMALS: normal respiratory effort, No retractions, No use of accessory muscles and clear to auscultation bilaterally AUSCULTATION: clear to auscultation bilaterally Cardio: COMMON NORMALS: regular rate, regular rhythm and No murmurs present (Cardio) RATE: regular rate RHYTHM: regular rhythm GI: COMMON NORMALS: Normal to inspection, nondistended, normoactive bowel sounds present, Soft to palpation, non-tender and no masses PALPATION: Yes Soft to palpation Extremity: COMMON NORMALS: normal to inspection and full ROM Neuro: COMMON NORMALS: patient oriented x3, moves all extremities and no focal motor deficits Psych: COMMON NORMALS: mental status grossly normal, Normal thought process present and cooperative THOUGHT PROCESS: Normal thought process present Skin: COMMON NORMALS: no rashes or lesions noted and no wounds GENERAL SKIN EXAM: no rashes or lesions noted Course Vital Signs: Vital signs: Vital Signs Temperature 98.0 F 05/06/22 20:09 Pulse Rate 72 05/07/22 00:44 Respiratory Rate 16 05/07/22 00:44 Blood Pressure 116/72 05/07/22 00:44 Pulse Oximetry 98 05/07/22 00:44 Oxygen Delivery Me thod 05/06/22 20:09 MDM - Nausea/Vomiting/Diarrhea Medical Decision Making Patient presents here with vomiting he feels much improved after fluids and Reglan he has been able to tolerate p.o. he is stable for discharge he is to follow-up with his PCP and return if worsening will prescribe Reglan for home. Lab Data 05/06/22 21:09 05/06/22 21: Laboratory Results WBC 8.8 10^3/uL (4.0-10.0) 05/06/22 21:09 RBC 4.86 10^6/uL (4.1-5.3) 05/06/22 21:09 Hgb 14.5 g/dL (11.7-16.6) 05/06/22 21:09 Hct 42.6 % (42.0-52.0) 05/06/22 21: MCV 87.7 fl (80-94) 05/06/22 21: MCH 29.8 pg (28.0-34.0) 05/06/22 21: MCHC 34.0 g/dL (30.0-36.0) 05/06/22 21: RDW 12.1 % (12.1-15.1) 05/06/22 21: Plt Count 409 10^3/cmm (130-400) H 05/06/22 21:09 MPV 8.9 fL (7.4-10.4) 05/06/22 21:09 Neut % (Auto) 68.3 % 05/06/22 21:09 Lymph % (Auto) 21.5 % 05/06/22 21:09 [place] % (Auto) 9.0 % 05/06/22 21:09 Eos % (Auto) 0.5 % 05/06/22 21:09 Baso % (Auto) 0.5 % 05/06/22 21:09 Neut # (Auto) 6.03 10^3/uL (1.8-7.7) 05/06/22 21:09 Lymph # (Auto) 1.9 10^3/uL (0.8-4.8) 05/06/22 21:09 [place] # (Auto) 0.8 10^3/uL (0.2-0.9) 05/06/22 21:09 Eos # (Auto) 0.0 10^3/uL (0.0-0.8) 05/06/22 21:09 Baso # (Auto) 0.0 10^3/uL (0.0-0.1) 05/06/22 21:09 Nucleated RBC % (auto) 0 % 05/06/22 21:09 Nucleated RBCs # 0.0 /100WBC 05/06/22 21:09 Sodium 141 mmol/L (136-145) 05/06/22 21:09 Potassium 3.9 mmol/L (3.5-5.1) 05/06/22 21:09 Chloride 101 mmol/L (98-107) 05/06/22 21:09 Carbon Dioxide 28 mmol/L (22-29) 05/06/22 21:09 Anion Gap 15.9 (5-19) 05/06/22 21:09 BUN 22 mg/dL (6-20) H 05/06/22 21:09 Creatinine 0.9 mg/dL (0.7-1.2) 05/06/22 21:09 GFR Calculation 101.2 mL/min (90-130) 05/06/22 21:09 Glucose 87 mg/dL (65-115) 05/06/22 21:09 Calculated Osmolality 295 mOsm/kg (285-295) 05/06/22 21:09 Calcium 9.5 mg/dL (8.5-10.5) 05/06/22 21:09 Total Bilirubin 0.6 mg/dL (0.15-1.2) 05/06/22 21:09 AST 16 U/L (0-40) 05/06/22 21:09 ALT 17 U/L (0-41) 05/06/22 21:09 Alkaline Phosphatase 90 U/L (40-130) 05/06/22 21:09 Total Protein 8.2 g/dL (6.6-8.7) 05/06/22 21:09 Albumin 4.7 g/dL (3.5-5.2) 05/06/22 21:09 Globulin 3.5 g/dL (1.3-4.6) 05/06/22 21:09 Lipase 25 U/L (13-60) 05/06/22 21:09 Discharge Plan Discharge Patient Disposition: Home Clinical Impression: Vomiting Condition: Stable Prescriptions: New metoclopramide HCl [Reglan] 10 mg tablet 10 mg PO Q6H PRN (Reason: nausea and vomiting) Qty: 20 0RF No Action Paxil 40 mg tablet 40 mg PO DAILY Qty: 30 2RF hydroxyzine HCl 50 mg tablet 50 mg PO QID PRN (Reason: anxiety) Qty: 120 2RF sucralfate [Carafate] 1 gram tablet 1 g PO BID Qty: 30 0RF pantoprazole 40 mg tablet,delayed release (DR/EC) See Rx Instructions .ROUTE .COMPLEX Qty: 90 0RF Dose Instruction: TAKE ONE TABLET BY MOUTH TWICE A DAY Rx Instructions: TAKE ONE TABLET BY MOUTH TWICE A DAY ondansetron 4 mg tablet,disintegrating 4 mg PO Q6H PRN (Reason: nausea and vomiting) Qty: 30 0RF baclofen 10 mg tablet 10 mg PO DAILY Qty: 30 2RF buprenorphine-naloxone 8-2 mg film 2.5 film sublingual DAILY Qty: 75 1RF Discharge Orders: Discharge ED (Routine); Ordered 05/07/22 Ordered By: Ranjit Price Referrals: Asif Murrieta MD [Primary Care Provider] - 1-3 days Discharge Diet: Advance as tolerated Discharge Activity: Resume usual activity Patient Instructions: Acute Nausea and Vomiting (ED) Coding Level of Care Code ED Crester for Manda Holguin
[2022-05-07] MEDS: diphenhydrAMINE 50 mg/mL SDV 1mL IVP (00:20)
[2022-05-07] MEDS: sodium chloride 0.9% 1,000 ML 999 ML IV (00:22)
[2022-05-07] MEDS: metoclopramide 5 mg/mL SDV 2 mL 10 MG IVP (00:22)
[2022-05-07 00:44] VITALS: BP 116/72; PULSE 72; RESP 16; O2SAT 98
== END 2022-05-07 01:06 | disposition home or self-care (01) ==
PROVIDERS: Emergency Provider Emergency Medicine; PCP Family Medicine
DX: R11.10 Vomiting, unspecified (principal)
CPT/HCPCS: 80053; 83690; 85025; 96374; 96375; 99284; J1200; J2765; J7030

== ENCOUNTER → 2022-06-08 11:15 | Outpatient (BNVA) | payer OTHER, SELFPAY | PROVIDERS: PCP Family Medicine; Visit Provider Psychiatry & Neurology Psychiatry | DX: F15.21 Other stimulant dependence, in remission (principal); F11.91 Opioid use, unspecified, in remission; F41.1 Generalized anxiety disorder; F32.9 Major depressive disorder, single episode, unspecified; Z79.899 Other long term (current) drug therapy | CPT/HCPCS: 80307 ==

== ENCOUNTER → 2022-10-27 14:36 | Outpatient (BNVA) | payer OTHER, SELFPAY | PROVIDERS: PCP Family Medicine; Visit Provider Psychiatry & Neurology Psychiatry | DX: F11.91 Opioid use, unspecified, in remission (principal); Z79.899 Other long term (current) drug therapy; F41.1 Generalized anxiety disorder; F15.21 Other stimulant dependence, in remission; F32.9 Major depressive disorder, single episode, unspecified | CPT/HCPCS: 80307 ==

== ENCOUNTER → 2023-01-26 14:13 | Outpatient (BNVA) | payer OTHER, SELFPAY | PROVIDERS: PCP Family Medicine; Visit Provider Psychiatry & Neurology Psychiatry | DX: F11.91 Opioid use, unspecified, in remission (principal); Z79.899 Other long term (current) drug therapy; F15.21 Other stimulant dependence, in remission; F41.1 Generalized anxiety disorder; F32.9 Major depressive disorder, single episode, unspecified | CPT/HCPCS: 80307 ==

== ENCOUNTER 2023-03-21 19:26 | Emergency (ER) | payer OTHER, MEDICAID, SELFPAY ==
[2023-03-21 19:37] VITALS: BP 119/84; PULSE 74; RESP 16; TEMP 36.8; O2SAT 99; BMI 25.1
[2023-03-21] MEDS: dexamethasone 10 mg/mL INJ IM (20:51)
[2023-03-21] MEDS: cephALEXin 500 mg Capsule PO (20:51)
--- NOTE | 2023-03-21 21:05 | ED_ITS ---
HPI - Ear Problem General: Chief complaint: Ear Stated complaint: ear pain Time Seen by Provider: 03/21/23 20:29 Source: patient Mode of arrival: ambulatory Limitations: no limitations History of Present Illness: 19-year-old male states that he has been having bilateral ear pain along with pressure in his ears along with sinus pressure and sinus pain he states over the last week he did finish them also states he still having the pressure and sinus pain along with ear pain. Denies any fever denies any congestion denies any vomiting or diarrhea. Associated symptoms: Reports ear or mastoid pain; Denies fever(s), headache(s) or neck pain Review of Systems Const: Denies: fever(s), chills, body aches or change in appetite ENMT: Reports: ear or mastoid pain and sinus pain; Denies: throat pain or dental pain Card: Denies: chest pain Resp: Denies: dyspnea GI: Denies: abdominal pain, nausea, vomiting or diarrhea Musc: Denies: neck pain or back pain Skin/Breast: Denies: rash Neuro: Denies: headache(s) PFSH ED PFSH: Medical History Amphetamine use disorder, severe, in early remission, dependence currently housed at sober living facility Major depression, chronic Methamphetamine use disorder, severe Psychiatric care Post traumatic stress disorder (PTSD) Per client report, further assessment needed Family History (Updated 04/08/22 @ 10:27 by Shahrzad Cohen LPN) Grandfather Cancer lung--maternal Other Hypertension Lung disease Psychiatric illness Stroke Denies family history of Diabetes CAD (coronary artery disease) Clotting disorder Dementia Hyperlipidemia Chronic kidney disease (CKD) Anesthesia complication Bleeding disorder Social History Smoking and tobacco/nicotine status: current every day tobacco/nicotine user (vape) e-cigarettes E-Cigarette Details: vaporizer device and with nicotine E- cig/vape details: Refill/ 2 - 3 days. Quit status (tobacco/nicotine): has tried quititng Number of times tried to quit tobacco: 2 Second hand smoke exposure: No Alcohol intake: former Year of sobriety/quit date alcohol: 2020 Substance/Drug Use: former Date of last use: meth and opioids, sober since 03/07 Lives independently: Yes Marital status: Single Number of children: 2 Current occupational status: employed Current occupation: [employer] Current gender identity: Male Special angel luis needs: No Agree to transfusion: Yes Physical Exam Const: COMMON NORMALS: no acute distress, patient oriented x3 and healthy appearing HENMT: COMMON NORMALS: normocephalic, atraumatic and TM's normal bilaterally HEAD & SCALP: normocephalic and atraumatic TYMPANIC MEMBRANE: TM's normal bilaterally OTHER: tenderness over maxiallry sinus Eye: COMMON NORMALS: Equal, round and reactive pupils present and EOMs intact bilaterally PUPIL: Yes Equal, round and reactive pupils present Neck/C-Spine: COMMON NORMALS: full ROM and supple Chest: COMMONS NORMALS: normal inspection of the chest Resp: COMMON NORMALS: normal respiratory effort Cardio: COMMON NORMALS: regular rate, regular rhythm and No murmurs present (Cardio) RATE: regular rate RHYTHM: regular rhythm Extremity: COMMON NORMALS: normal to inspection and full ROM Neuro: COMMON NORMALS: patient oriented x3, moves all extremities and no focal motor deficits Psych: COMMON NORMALS: mental status grossly normal, Normal thought process present and cooperative THOUGHT PROCESS: Normal thought process present Skin: COMMON NORMALS: no rashes or lesions noted and no wounds GENERAL SKIN EXAM: no rashes or lesions noted Course Vital Signs: Vital signs: Vital Signs Temperature 98.2 F 03/21/23 19:37 Pulse Rate 74 03/21/23 19:37 Respiratory Rate 16 03/21/23 19:37 Blood Pressure 119/84 03/21/23 19:37 Pulse Oximetry 99 03/21/23 19:37 Oxygen Delivery Me thod Room Air 03/21/23 19:37 MDM - Ear Medical Decision Making Patient presents here with likely sinusitis he is well-appearing here TMs are normal no otitis media he is stable for discharge we will place him on Keflex he is to follow-up PCP return if worsening No radiology studies performed this visit Discharge Plan Discharge Patient Disposition: Home Clinical Impression: Sinusitis Qualifiers: Sinusitis location: unspecified location Chronicity: acute Recurrence: non- recurrent Qualified Code(s): J01.90 - Acute sinusitis, unspecified Condition: Stable Prescriptions: New cephalexin 500 mg capsule 500 mg PO TID 7 Days Qty: 21 0RF No Action pantoprazole 40 mg tablet,delayed release (DR/EC) See Rx Instructions .ROUTE .COMPLEX Qty: 90 0RF Dose Instruction: TAKE ONE TABLET BY MOUTH TWICE A DAY Rx Instructions: TAKE ONE TABLET BY MOUTH TWICE A DAY ondansetron 4 mg tablet,disintegrating 4 mg PO Q6H PRN (Reason: nausea and vomiting) Qty: 30 0RF buprenorphine-naloxone 8-2 mg film 3 film sublingual DAILY Qty: 90 2RF hydroxyzine HCl 50 mg tablet 50 mg PO QID PRN (Reason: anxiety) Qty: 120 2RF Paxil 40 mg tablet 40 mg PO DAILY Qty: 30 2RF amoxicillin 875 mg tablet 875 mg PO BID 7 Days Qty: 14 0RF sucralfate [Carafate] 1 gram tablet 1 g PO BID Qty: 30 0RF Reglan 10 mg tablet 10 mg PO Q6H PRN (Reason: nausea and vomiting) Qty: 20 0RF Discharge Orders: Discharge ED (Routine); Ordered 03/21/23 Ordered By: Ranjit Price Referrals: Asif Murrieta MD [Primary Care Provider] - 1-3 days Discharge Diet: Advance as tolerated Discharge Activity: Resume usual activity Patient Instructions: Sinusitis (ED) Coding Level of Care Code ED Title Checker for Manda Holguin
[2023-03-21 21:14] VITALS: BP 119/84; PULSE 74; RESP 16; TEMP 36.8; O2SAT 99
== END 2023-03-21 21:15 | disposition home or self-care (01) ==
PROVIDERS: Emergency Provider Emergency Medicine; PCP Family Medicine
DX: J01.90 Acute sinusitis, unspecified (principal); F17.290 Nicotine dependence, other tobacco product, uncomplicated
CPT/HCPCS: 96372; 99284; J1100

== ENCOUNTER → 2023-04-26 11:58 | Outpatient (BNVA) | payer OTHER, SELFPAY | PROVIDERS: PCP Family Medicine; Visit Provider Psychiatry & Neurology Psychiatry | DX: F15.21 Other stimulant dependence, in remission (principal); F11.91 Opioid use, unspecified, in remission; Z79.899 Other long term (current) drug therapy; F41.1 Generalized anxiety disorder; F32.9 Major depressive disorder, single episode, unspecified | CPT/HCPCS: 80307 ==

== ENCOUNTER 2023-06-12 05:04 | Emergency (ER) | payer MEDICAID, SELFPAY ==
[2023-06-12 05:26] VITALS: BP 161/92; PULSE 81; RESP 22; O2SAT 95
[2023-06-12 05:41] VITALS: BP 161/92; PULSE 77; RESP 18; O2SAT 100
--- NOTE | 2023-06-12 05:52 | W.ED.DENTAL ---
HPI - Dental/Oral General: Chief complaint: Ear Stated complaint: left jaw pain going into quaker Time Seen by Provider: 06/12/23 05:27 History of Present Illness: 27 year-old male who had upper right molar extraction 2 weeks ago he says. He had done well with that until 2 days ago when he began to get pain. He started abx, and has taken ugo and tylenol without relief. no fever. No drainage. Increased pain this morning. Associated symptoms: Denies fever(s) or odynophagia Review of Systems Const: Denies: fever(s) ENMT: Reports: dental pain and sinus pain; Denies: throat pain, uvular edema, odynophagia, halitosis or nasal discharge Card: Denies: chest pain Resp: Denies: dyspnea GI: Reports: nausea; Denies: vomiting PFSH ED PFSH: Medical History Amphetamine use disorder, severe, in early remission, dependence currently housed at sober living facility Major depression, chronic Methamphetamine use disorder, severe Psychiatric care Post traumatic stress disorder (PTSD) Per client report, further assessment needed Family History Grandfather Cancer lung--maternal Other Hypertension Lung disease Psychiatric illness Stroke Denies family history of Diabetes CAD (coronary artery disease) Clotting disorder Dementia Hyperlipidemia Chronic kidney disease (CKD) Anesthesia complication Bleeding disorder Social History Smoking and tobacco/nicotine status: current every day tobacco/nicotine user (vape) e-cigarettes E-Cigarette Details: vaporizer device and with nicotine E-cig/vape details: Refill/ 2 - 3 days. Quit status (tobacco/nicotine): has tried quititng Number of times tried to quit tobacco: 2 Second hand smoke exposure: No Alcohol intake: former Year of sobriety/quit date alcohol: 2020 Substance/Drug Use: former Date of last use: meth and opioids, sober since 03/07 Lives independently: Yes Marital status: Single Number of children: 2 Current occupational status: employed Current occupation: [employer] Current gender identity: Male Special angel luis needs: No Agree to transfusion: Yes Physical Exam Const: GENERAL APPEARANCE: cooperative and in distress (in pain); not frail appearing HENMT: COMMON NORMALS: normocephalic, atraumatic, TM's normal bilaterally, Normal external nose present and Normal nasal mucous membranes and turbinates present HEAD & SCALP: normocephalic and atraumatic; no hematoma FACE & SINUS: face symmetric and Facial tenderness on exam of face and sinuses; no abrasion, no erythema and no edema NOSE: Normal external nose present and Normal nasal mucous membranes and turbinates present TYMPANIC MEMBRANE: TM's normal bilaterally MOUTH: lip normal and tongue normal; no drooling TEETH & GINGIVA: Yes other (#1 socket with mild swelling/irritation. No clot present. + tenderness) THROAT: no uvular edema Eye: COMMON NORMALS: Equal, round and reactive pupils present and EOMs intact bilaterally PUPIL: Yes Equal, round and reactive pupils present Resp: COMMON NORMALS: normal respiratory effort and clear to auscultation bilaterally AUSCULTATION: clear to auscultation bilaterally Cardio: COMMON NORMALS: regular rate and regular rhythm RATE: regular rate RHYTHM: regular rhythm Course Vital Signs: Vital signs: Vital Signs Pulse Rate 61 06/12/23 07:07 Respiratory Rate 16 06/12/23 07:07 Blood Pressure 161/92 06/12/23 05:41 Pulse Oximetry 94 06/12/23 07:07 Oxygen Delivery Me thod Room Air 06/12/23 05:41 MDM - Dental/Oral Medical Decision Making Patient is obviously in pain. Minimal relief with toradol and viscous lidocaine. He is a former narcotic user and didn't want opiod medication, but is now asking for something more. Given IM injection of dilaudid. Will prescribe short course of percocet and toradol with abx. endouraged to follow up with dentist. he has no fever, no significant swelling, no signs of enlarging abscess. He has been prescribed suboxone, which is a problem given the pain medication, but will have to stay off of this during this acute pain episode. He understands. No radiology studies performed this visit Discharge Plan Discharge Patient Disposition: Home Clinical Impression: Dry tooth socket Condition: Stable Prescriptions: New clindamycin HCl 300 mg capsule 300 mg PO Q6H 10 Days Qty: 40 0RF Percocet 7.5-325 mg tablet 1 tab PO Q6H PRN (Reason: pain) Qty: 10 0RF ketorolac 10 mg tablet 10 mg PO TID PRN (Reason: pain) Qty: 10 0RF No Action pantoprazole 40 mg tablet,delayed release (DR/EC) See Rx Instructions .ROUTE .COMPLEX Qty: 90 0RF Dose Instruction: TAKE ONE TABLET BY MOUTH TWICE A DAY Rx Instructions: TAKE ONE TABLET BY MOUTH TWICE A DAY ondansetron 4 mg tablet,disintegrating 4 mg PO Q6H PRN (Reason: nausea and vomiting) Qty: 30 0RF amoxicillin 875 mg tablet 875 mg PO BID 7 Days Qty: 14 0RF sucralfate [Carafate] 1 gram tablet 1 g PO BID Qty: 30 0RF hydroxyzine HCl 50 mg tablet 50 mg PO QID PRN (Reason: anxiety) Qty: 120 2RF Paxil 40 mg tablet 40 mg PO DAILY Qty: 30 2RF buprenorphine-naloxone [Suboxone] 8-2 mg film 3 film sublingual DAILY Qty: 90 2RF Reglan 10 mg tablet 10 mg PO Q6H PRN (Reason: nausea and vomiting) Qty: 20 0RF Discharge Orders: Discharge ED (Routine); Ordered 06/12/23 Ordered By: Jitendra Alegre Referrals: Asif Murrieta MD [Primary Care Provider] - Patient Instructions: Dry Socket (ED), Opioid Safety, Pain Management Activity Restrictions/Additional Instructions: Ice may help. Return for fever despite antibiotics. Call your dentist on Tuesday. Use medication sparingly. Coding Level of Care Code ED Warp Scouring Vat Tender for Manda Holguin
[2023-06-12] MEDS: ondansetron 4 MG Tablet PO (05:57)
[2023-06-12] MEDS: lidocaine 2% viscous 15 mL UDC 5 ML MUCOUS MEM (05:58)
[2023-06-12] MEDS: ketorolac 60 mg/2 mL INJ IM (06:00)
[2023-06-12 06:24] VITALS: RESP 20; O2SAT 99
[2023-06-12] MEDS: HYDROmorphone 1 mg/mL INJ 1 mL 2 MG IM (06:24)
[2023-06-12 07:07] VITALS: PULSE 61; RESP 16; O2SAT 94
== END 2023-06-12 07:08 | disposition home or self-care (01) ==
PROVIDERS: Emergency Provider Emergency Medicine; PCP Family Medicine
DX: M27.3 Alveolitis of jaws (principal); F17.290 Nicotine dependence, other tobacco product, uncomplicated
CPT/HCPCS: 96372; 99284; J1170; J1885; Q0162

== ENCOUNTER → 2023-08-05 10:45 | Outpatient (BNVA) | payer OTHER, SELFPAY | PROVIDERS: PCP Family Medicine; Visit Provider Psychiatry & Neurology Psychiatry | DX: F11.91 Opioid use, unspecified, in remission (principal); Z79.899 Other long term (current) drug therapy; F15.21 Other stimulant dependence, in remission; F41.1 Generalized anxiety disorder; F32.9 Major depressive disorder, single episode, unspecified | CPT/HCPCS: 80307 ==

== ENCOUNTER 2023-11-11 19:54 | Emergency (ER) | payer OTHER, SELFPAY ==
[2023-11-11 19:55] VITALS: BP 140/68; PULSE 96; RESP 22; TEMP 36.7; O2SAT 100; BMI 21.5
[2023-11-11 20:02] VITALS: BP 123/85; PULSE 79; RESP 16; O2SAT 98
--- NOTE | 2023-11-11 20:07 | CTR_ITS ---
PROCEDURE INFORMATION: Exam: CT Abdomen And Pelvis Without Contrast Exam date and time: 11/11/2023 8:48 PM Age: 28 years old Clinical indication: Abdominal pain; Flank; Right; Additional info: Right flank pain TECHNIQUE: Imaging protocol: Computed tomography of the abdomen and pelvis without contrast. Radiation optimization: All CT scans at this facility use at least one of these dose optimization techniques: automated exposure control; mA and/or kV adjustment per patient size (includes targeted exams where dose is matched to clinical indication); or iterative reconstruction. COMPARISON: CR XR chest 1V portable [id number] 01/07/2022 7:02 PM RADIATION DOSE METRICS: Total DLP (mGy-cm): 319.19 FINDINGS: Liver: Normal. No mass. Gallbladder and biliary ducts: Normal. No calcified stones. No ductal dilation. Pancreas: Normal. No ductal dilation. Spleen: Normal. No splenomegaly. Adrenal glands: Normal. No mass. Kidneys and ureters: Normal. No hydronephrosis. Stomach and bowel: Moderate constipation. Appendix: No evidence of appendicitis. Intraperitoneal space: Unremarkable. No free air. No significant fluid collection. Vasculature: Unremarkable. No abdominal aortic aneurysm. Lymph nodes: Unremarkable. No enlarged lymph nodes. Urinary bladder: Unremarkable as visualized. Reproductive: Unremarkable as visualized. Bones/joints: Unremarkable. No acute fracture. Soft tissues: Unremarkable. CT/CT kidney stone [id number] IMPRESSION: 1. Negative for acute inflammatory process in the abdomen or pelvis. 2. Moderate constipation.
--- NOTE | 2023-11-11 20:16 | ED_ITS ---
HPI - Abdominal Pain 2 General: Chief Complaint: Abdominal Pain Stated Complaint: Left side abd pain Time Seen by Provider: 11/11/23 20:07 History of Present Illness: 28-year-old male patient comes in today with complaints of right flank pain and right lower abdominal pain. Patient reports some burning with urination. Patient reports symptoms started this morning. Patient appears nontoxic. Patient appears in moderate pain. Related Data Previous Rx's Medication Instructions Recorded ondansetron 4 mg disintegrating 4 mg PO Q6H PRN nausea and 04/08/22 tablet vomiting #30 tabs pantoprazole 40 mg tablet,delayed See Rx Instructions .Route 04/08/22 release .COMPLEX #90 tabs metoclopramide HCl 10 mg tablet 10 mg PO Q6H PRN nausea and 05/07/22 (Reglan) vomiting #20 tabs sucralfate 1 gram tablet (Carafate) 1 g PO BID #30 tabs 05/24/22 ketorolac 10 mg tablet 10 mg PO TID PRN pain #10 tabs 06/12/23 oxycodone-acetaminophen 7.5 mg-325 1 tab PO Q6H PRN pain #10 tabs 06/12/23 mg tablet (Percocet) hydroxyzine HCl 50 mg tablet 50 mg PO QID PRN anxiety #120 tabs 08/05/23 buprenorphine 8 mg-naloxone 2 mg 1 film sublingual TID #90 ea 09/29/23 sublingual film gabapentin 300 mg capsule 300 mg PO TID #90 caps 10/31/23 paroxetine HCl 40 mg tablet (Paxil) 40 mg PO DAILY #30 tabs 11/04/23 Allergies Allergy/AdvReac Type Severity Reaction Status Date / Time lactose AdvReac Intermediate ADR-Diarrhe Verified 11/04/23 10:06 a Review of Systems 2 General: Reports: 10 or more systems reviewed and unremarkable except in HPI and below Musc: Reports: back pain PFSH ED 2 PFSH: Medical History Amphetamine use disorder, severe, in early remission, dependence currently housed at sober living facility Major depression, chronic Methamphetamine use disorder, severe Psychiatric care Post traumatic stress disorder (PTSD) Per client report, further assessment needed Family History Grandfather Cancer lung--maternal Other Hypertension Lung disease Psychiatric illness Stroke Denies family history of Diabetes CAD (coronary artery disease) Clotting disorder Dementia Hyperlipidemia Chronic kidney disease (CKD) Anesthesia complication Bleeding disorder Social History Smoking and tobacco/nicotine status: current every day tobacco/nicotine user (vape) e-cigarettes E-Cigarette Details: vaporizer device and with nicotine E- cig/vape details: Refill/ 2 - 3 days. Quit status (tobacco/nicotine): has tried quititng Number of times tried to quit tobacco: 2 Second hand smoke exposure: No Alcohol intake: former Year of sobriety/quit date alcohol: 2020 Substance/Drug Use: former Date of last use: meth and opioids, sober since 03/07 Lives independently: Yes Marital status: Single Number of children: 2 Current occupational status: employed Current occupation: [employer] Current gender identity: Male Special angel luis needs: No Agree to transfusion: Yes Physical Exam 2 Const: COMMON NORMALS: alert HENMT: COMMON NORMALS: normocephalic HEAD & SCALP: normocephalic Neck/C-Spine: COMMON NORMALS: full ROM Chest: COMMONS NORMALS: normal inspection of the chest Resp: COMMON NORMALS: normal respiratory effort and clear to auscultation bilaterally AUSCULTATION: clear to auscultation bilaterally Cardio: COMMON NORMALS: regular rate RATE: regular rate GI: INSPECTION: Yes normal to inspection AUSCULTATION: Yes normoactive bowel sounds PALPATION: Yes Tenderness to palpation present (GI) Details: RLQ and RUQ : BLADDER/KIDNEY EXAM: Yes CVA tenderness on the right Back/Pelvis: GENERAL BACK: Yes CVA tenderness Extremity: COMMON NORMALS: normal to inspection Neuro: SENSORIUM/ORIENTATION: Yes alert Skin: COMMON NORMALS: turgor normal GENERAL SKIN EXAM: turgor normal Course 2 Vital Signs: Vital signs: Vital Signs Temperature 98.1 F 11/11/23 19:55 Pulse Rate 69 11/11/23 21:02 Respiratory Rate 17 11/11/23 20:32 Blood Pressure 119/77 11/11/23 21:02 Pulse Oximetry 97 11/11/23 21:02 Oxygen Delivery Me thod Room Air 11/11/23 21:02 MDM - Abdominal Pain Medical Decision Making 28-year-old male patient comes in today with complaints of right flank and right abdominal pain. On exam abdomen is firm with some tenderness in the right upper quadrant and right lower abdomen. Patient also has some CVA tenderness. Vital signs are normal. Differential diagnosis includes but not limited to urinary tract infection, pyelonephritis, renal colic, cholecystitis, pancreatitis, appendicitis, constipation. CT of the abdomen pelvis noted moderate constipation. CBC, CMP and urinalysis were normal. Patient was given milk of magnesia and Constulose and discharged home with recommendations to drink lots of water and sit in the hot water bath to help with his abdominal pain. Patient reports understanding of care plan and need for follow-up. Lab Data 11/11/23 20:47 11/11/23 20:47 Labs/Radiology: Radiology Impressions Abdomen/Pelvis CT 11/11/23 20:07 IMPRESSION: 1. Negative for acute inflammatory process in the abdomen or pelvis. 2. Moderate constipation. Laboratory Results WBC 5.38 10^3/uL (3.29-11.43) 11/11/23 20:47 RBC 4.40 10^6/uL (3.85-5.65) 11/11/23 20:47 Hgb 13.30 g/dL (11.27-16.99) 11/11/23 20:47 Hct 39.0 % (37-53) 11/11/23 20:47 MCV 88.6 fl (82-101) 11/11/23 20:47 MCH 30.2 pg (27-33) 11/11/23 20:47 MCHC 34.1 g/dL (30-55) 11/11/23 20:47 RDW 11.8 % (12.1-15.1) L 11/11/23 20:47 Plt Count 401 10^3/cmm (157-399) H 11/11/23 20:47 MPV 9.4 fL (7.4-10.4) 11/11/23 20:47 Neut % (Auto) 58.1 % 11/11/23 20:47 Lymph % (Auto) 29.0 % 11/11/23 20:47 [place] % (Auto) 10.4 % 11/11/23 20:47 Eos % (Auto) 1.5 % 11/11/23 20:47 Baso % (Auto) 0.6 % 11/11/23 20:47 Neut # (Auto) 3.13 10^3/uL (1.8-7.7) 11/11/23 20:47 Lymph # (Auto) 1.6 10^3/uL (0.8-4.8) 11/11/23 20:47 [place] # (Auto) 0.6 10^3/uL (0.2-0.9) 11/11/23 20:47 Eos # (Auto) 0.1 10^3/uL (0.0-0.8) 11/11/23 20:47 Baso # (Auto) 0.0 10^3/uL (0.0-0.1) 11/11/23 20:47 Nucleated RBC % (auto) 0 % 11/11/23 20:47 Nucleated RBCs # 0.0 /100WBC 11/11/23 20:47 Sodium 140 mmol/L (136-145) 11/11/23 20:47 Potassium 4.2 mmol/L (3.5-5.1) 11/11/23 20:47 Chloride 103 mmol/L (98-107) 11/11/23 20:47 Carbon Dioxide 27 mmol/L (22-29) 11/11/23 20:47 Anion Gap 14.2 (5-19) 11/11/23 20:47 BUN 17 mg/dL (6-20) 11/11/23 20:47 Creatinine 0.9 mg/dL (0.7-1.2) 11/11/23 20:47 GFR Calculation 99.8 mL/min (90-130) 11/11/23 20:47 Glucose 98 mg/dL (65-115) 11/11/23 20:47 Calculated Osmolality 292 mOsm/kg (285-295) 11/11/23 20:47 Calcium 9.0 mg/dL (8.5-10.5) 11/11/23 20:47 Total Bilirubin 0.3 mg/dL (0.15-1.2) 11/11/23 20:47 AST 21 U/L (0-40) 11/11/23 20:47 ALT 16 U/L (0-41) 11/11/23 20:47 Alkaline Phosphatase 70 U/L (40-130) 11/11/23 20:47 C-Reactive Protein 3.0 mg/L (0.0-4.9) 11/11/23 20:47 Total Protein 7.5 g/dL (6.6-8.7) 11/11/23 20:47 Albumin 4.6 g/dL (3.5-5.2) 11/11/23 20:47 Globulin 2.9 g/dL (1.3-4.6) 11/11/23 20:47 Lipase 29 U/L (13-60) 11/11/23 20:47 Urine Color Yellow (Yellow) 11/11/23 20:47 Urine Appearance Clear (CLEAR) 11/11/23 20:47 Urine pH 7.5 (5-7) 11/11/23 20:47 Ur Specific [place] 1.017 (1.005-1.030) 11/11/23 20:47 Urine Protein Negative (Negative) 11/11/23 20:47 Urine Glucose (UA) Negative (Normal) 11/11/23 20:47 Urine Ketones Negative (Negative) 11/11/23 20:47 Urine Blood Negative (Negative) 11/11/23 20:47 Urine Nitrate Negative (Negative) 11/11/23 20:47 Urine Bilirubin Negative (Negative) 11/11/23 20:47 Urine Urobilinogen 1.0 mg/dL (Negative) 11/11/23 20:47 Ur Leukocyte Esterase Negative (Negative) 11/11/23 20:47 Urine RBC 0-2 /hpf (0-2) 11/11/23 20:47 Urine WBC 0-5 /hpf (0-5) 11/11/23 20:47 Ur Squamous Epith Cells 0-5 /hpf (0-5) 11/11/23 20:47 Amorphous Sediment Not Reportable 11/11/23 20:47 Urine Bacteria None seen /hpf (NONE) 11/11/23 20:47 Hyaline Casts 0-4 /lpf H 11/11/23 20:47 All radiology interpretation(s) finalized by discharge Discharge Plan Discharge Patient Disposition: Home Clinical Impression: Constipation Qualifiers: Constipation type: unspecified constipation type Qualified Code(s): K59.00 - Constipation, unspecified Condition: Stable Prescriptions: No Action Paxil 40 mg tablet 40 mg PO DAILY Qty: 30 2RF pantoprazole 40 mg tablet,delayed release (DR/EC) See Rx Instructions .ROUTE .COMPLEX Qty: 90 0RF Dose Instruction: TAKE ONE TABLET BY MOUTH TWICE A DAY Rx Instructions: TAKE ONE TABLET BY MOUTH TWICE A DAY ondansetron 4 mg tablet,disintegrating 4 mg PO Q6H PRN (Reason: nausea and vomiting) Qty: 30 0RF hydroxyzine HCl 50 mg tablet 50 mg PO QID PRN (Reason: anxiety) Qty: 120 2RF sucralfate [Carafate] 1 gram tablet 1 g PO BID Qty: 30 0RF buprenorphine-naloxone 8-2 mg film 1 film sublingual TID Qty: 90 2RF gabapentin 300 mg capsule 300 mg PO TID Qty: 90 2RF Reglan 10 mg tablet 10 mg PO Q6H PRN (Reason: nausea and vomiting) Qty: 20 0RF Percocet 7.5-325 mg tablet 1 tab PO Q6H PRN (Reason: pain) Qty: 10 0RF ketorolac 10 mg tablet 10 mg PO TID PRN (Reason: pain) Qty: 10 0RF Discharge Orders: Discharge ED (Routine); Ordered 11/11/23 Ordered By: Jose Manuel Hamilton Referrals: Asif Murrieta MD [Primary Care Provider] - Discharge Diet: Usual diet Discharge Activity: Increase activity as tolerated Patient Instructions: Constipation (ED) Activity Restrictions/Additional Instructions: Home and rest. Activity as tolerated. Follow-up with primary care. Return to ER for high fever greater than 100.4, blood in vomit or stool, or new concerns. Coding Level of Care Code ED Insolvency Practitioner for Manda Holguin
[2023-11-11] MEDS: ketorolac 30 mg/mL INJ 15 MG IVP (20:28)
[2023-11-11] MEDS: ondansetron 2 mg/ML SDV 2 mL 4 MG IVP (20:30)
[2023-11-11 20:32] VITALS: BP 118/86; PULSE 78; RESP 17; O2SAT 97; O2SAT 99
[2023-11-11] MEDS: morphine 4 mg/mL SDV 1 mL IVP (20:32)
[2023-11-11 20:52] LABS: Basophils % 0.6 %; Eosinophils # 0.1 10^3/uL (0.0-0.8); Eosinophils % 1.5 %; Lymphocytes # 1.6 10^3/uL (0.8-4.8); Mean Corpuscular HGB Conc 34.1 g/dL (30-55); Mean Corpuscular Hemoglobin 30.2 pg (27-33); Mean Corpuscular Volume 88.6 fl (82-101); Mean Platelet Volume 9.4 fL (7.4-10.4); Monocytes # 0.6 10^3/uL (0.2-0.9); Monocytes % 10.4 %; Neutrophils # 3.13 10^3/uL (1.8-7.7); Neutrophils % 58.1 %; Nucleated Red Blood Cells % 0 %; Platelet Count 401 10^3/cmm (157-399); Red Cell Distribution Width 11.8 % (12.1-15.1); White Blood Count 5.38 10^3/uL (3.29-11.43)
[2023-11-11 20:54] LABS: Bilirubin Urine Negative (Negative); Blood Urine Negative (Negative); Glucose Urine UA Negative (Normal); Ketones Urine Negative (Negative); Leukocyte Esterase Urine Negative (Negative); Nitrate Urine Negative (Negative); Protein Urine Negative (Negative); Specific Gravity, Urine 1.017 (1.005-1.030); Urine Appearance Clear (CLEAR); Urine Color Yellow (Yellow); pH Urine 7.5 (5-7)
[2023-11-11 20:57] LABS: Add Urine Microscopic? YES; Bacteria Urine None Seen /hpf; Hyaline Casts Urine 0-4 /lpf; RBC Urine 0-2 /hpf (0-2); Squamous Epithelial Cell Urine 0-5 /hpf (0-5); WBC Urine 0-5 /hpf (0-5)
[2023-11-11 21:02] VITALS: BP 119/77; PULSE 69; O2SAT 97
[2023-11-11 21:08] LABS: Alanine Aminotransferase 16 U/L (0-41); Albumin Level 4.6 g/dL (3.5-5.2); Alkaline Phosphatase 70 U/L (40-130); Anion Gap 14.2 (5-19); Aspartate Amino Transferase 21 U/L (0-40); Blood Urea Nitrogen 17 mg/dL (6-20); Carbon Dioxide 27 mmol/L (22-29); Chloride 103 mmol/L (98-107); Creatinine Clr Calc Pharmacy 121.6471; Globulin 2.9 g/dL (1.3-4.6); Glomerular Filtration Rate 99.8 mL/min (90-130); Glucose 98 mg/dL (65-115); Lipase 29 U/L (13-60); Osmolality Calculated 292 mOsm/kg (285-295); Potassium 4.2 mmol/L (3.5-5.1); Sodium 140 mmol/L (136-145); Total Bilirubin 0.3 mg/dL (0.15-1.2); Total Protein 7.5 g/dL (6.6-8.7)
[2023-11-11 21:30] VITALS: BP 130/66; PULSE 82; O2SAT 96
[2023-11-11] MEDS: lactulose oral liq 20 gm/30 mL UDC PO (21:58)
[2023-11-11] MEDS: magnesium hydroxide 30 mL UDC PO (21:58)
[2023-11-11 22:12] VITALS: BP 130/66; PULSE 77; O2SAT 94
== END 2023-11-11 22:00 | disposition home or self-care (01) ==
PROVIDERS: Emergency Provider Nurse Practitioner Family; PCP Family Medicine
DX: K59.00 Constipation, unspecified (principal); F17.290 Nicotine dependence, other tobacco product, uncomplicated
CPT/HCPCS: 74176; 80053; 81001; 83690; 85025; 86140; 96374; 96375; 99285; J1885; J2270; J2405

== ENCOUNTER → 2024-02-03 10:52 | Outpatient (BNVA) | payer OTHER, SELFPAY | PROVIDERS: PCP Family Medicine; Visit Provider Psychiatry & Neurology Psychiatry | DX: F15.21 Other stimulant dependence, in remission (principal); F11.91 Opioid use, unspecified, in remission; Z79.899 Other long term (current) drug therapy; F41.1 Generalized anxiety disorder; F32.9 Major depressive disorder, single episode, unspecified | CPT/HCPCS: 80307 ==

== ENCOUNTER → 2024-05-07 10:52 | Outpatient (BNVA) | payer OTHER, SELFPAY | PROVIDERS: PCP Family Medicine; Visit Provider Psychiatry & Neurology Psychiatry | DX: F11.91 Opioid use, unspecified, in remission (principal); Z79.899 Other long term (current) drug therapy; F15.21 Other stimulant dependence, in remission | CPT/HCPCS: 80307 ==

== ENCOUNTER → 2024-10-04 14:22 | Outpatient (BNVA) | payer OTHER, SELFPAY | PROVIDERS: PCP Family Medicine; Visit Provider Psychiatry & Neurology Psychiatry | DX: Z79.899 Other long term (current) drug therapy (principal); F15.21 Other stimulant dependence, in remission; F11.91 Opioid use, unspecified, in remission | CPT/HCPCS: 80307 ==

== ENCOUNTER 2024-10-06 15:32 | Emergency (ER) | payer OTHER, MEDICAID, SELFPAY ==
[2024-10-06 15:37] VITALS: BP 132/77; PULSE 110; RESP 16; TEMP 36.9; O2SAT 100; BMI 20.3
--- NOTE | 2024-10-06 16:01 | W.ED.SKABFB ---
HPI - Skin/Abscess/Foreign Bdy General: Chief complaint: Skin/Abscess/Foreign Body Stated complaint: insect bites both legs Time Seen by Provider: 10/06/24 15:41 History of Present Illness: 29-year-old male presents emergency room complaining insect bites he been working outside began to get multiple bites on his lower legs. He treated this by dousing them with gasoline. States it did not help and now his legs are burning. No recent fever sweats or chills. Associated symptoms: Deny chills or fever(s) Related Data Home Medications ?Medication ?Instructions ?Recorded ?Confirmed paroxetine HCl 40 mg tablet (Paxil) 40 mg PO QPM 10/06/24 10/06/24 Previous Rx's ?Medication ?Instructions ?Recorded hydroxyzine HCl 50 mg tablet 50 mg PO QID PRN anxiety #120 tabs 05/01/24 gabapentin 400 mg capsule 400 mg PO TID #90 caps 05/24/24 buprenorphine 8 mg-naloxone 2 mg 1 film sublingual TID #90 ea 10/04/24 sublingual film propranolol 20 mg tablet 20 mg PO BID PRN anxiety #60 tabs 10/04/24 methylprednisolone 4 mg tablets in See Rx Instructions PO .COMPLEX 10/06/24 a dose pack (Medrol (Jadiel)) #21 ea triamcinolone acetonide 0.5 % 1 applic topical BID #15 grams 10/06/24 topical ointment Allergies Allergy/AdvReac Type Severity Reaction Status Date / Time lactose AdvReac Intermediate ADR-Diarrhe Verified 10/06/24 15:39 a Review of Systems Const: Denies: fever(s) or chills Card: Denies: chest pain Resp: Denies: dyspnea GI: Denies: abdominal pain : Denies: dysuria, urinary frequency or urinary urgency Musc: Denies: neck pain or back pain Skin/Breast: Denies: rash PFSH ED PFSH: Medical History Amphetamine use disorder, severe, in early remission, dependence currently housed at sober living facility Major depression, chronic Methamphetamine use disorder, severe Psychiatric care Post traumatic stress disorder (PTSD) Per client report, further assessment needed Family History Grandfather Cancer lung--maternal Other Hypertension Lung disease Psychiatric illness Stroke Denies family history of Diabetes CAD (coronary artery disease) Clotting disorder Dementia Hyperlipidemia Chronic kidney disease (CKD) Anesthesia complication Bleeding disorder Social History Smoking and tobacco/nicotine status: current every day tobacco/nicotine user (vape) e-cigarettes E-Cigarette Details: vaporizer device and with nicotine E-cig/vape details: Refill/ 2 - 3 days. Quit status (tobacco/nicotine): has tried quititng Number of times tried to quit tobacco: 2 Second hand smoke exposure: No Alcohol intake: former Year of sobriety/quit date alcohol: 2020 Substance/Drug Use: former Date of last use: meth and opioids, sober since 03/07 Lives independently: Yes Marital status: Single Number of children: 2 Current occupational status: employed Current occupation: [employer] Current gender identity: Male Special angel luis needs: No Agree to transfusion: Yes Physical Exam Const: COMMON NORMALS: no acute distress GENERAL APPEARANCE: cooperative and comfortable ORIENTATION/CONSCIOUSNESS: Yes awake, Yes oriented to person, Yes oriented to place and Yes oriented to time HENMT: COMMON NORMALS: normocephalic, atraumatic and hearing grossly normal bilaterally HEAD & SCALP: normocephalic and atraumatic Resp: COMMON NORMALS: normal respiratory effort, No retractions, No use of accessory muscles and clear to auscultation bilaterally AUSCULTATION: clear to auscultation bilaterally Cardio: COMMON NORMALS: regular rate, regular rhythm and No murmurs present (Cardio) RATE: regular rate RHYTHM: regular rhythm GI: COMMON NORMALS: Soft to palpation and No hepatosplenomegaly present AUSCULTATION: Yes normoactive bowel sounds PALPATION: Yes Soft to palpation, No Tenderness to palpation present (GI), No Guarding due to palpation present (GI) and Yes No hepatosplenomegaly present Extremity: COMMON NORMALS: normal to inspection, capillary refill normal, no clubbing, cyanosis or edema, no calf tenderness and no pedal edema Neuro: SENSORIUM/ORIENTATION: Yes oriented to person, Yes oriented to place and Yes oriented to time Skin: OTHER: Several small irritated areas in the lower extremities consistence with skin might such as chiggers. No sign of active infection. No induration Course Vital Signs: Vital signs: Vital Signs Temperature 98.5 F 10/06/24 15:37 Pulse Rate 110 H 10/06/24 15:37 Respiratory Rate 16 10/06/24 15:37 Blood Pressure 132/77 10/06/24 15:37 Pulse Oximetry 100 10/06/24 15:37 Oxygen Delivery Me thod Room Air 10/06/24 15:37 MDM - Skin/Abscess/Foreign Bdy Medicial Decision Making Suspect patient may have come to contact with skin lines such as chiggers. Will discharge patient home apply topical steroids discourage further use of gasoline to treat the skin mites. Can use topical triamcinolone as needed. Can also use Zyrtec [id number]. No radiology studies performed this visit Discharge Plan Discharge Patient Disposition: Home Clinical Impression: Insect bite Condition: Stable Prescriptions: New methylprednisolone [Medrol (Jadiel)] 4 mg tablets,dose pack See Rx Instructions .ROUTE .COMPLEX Qty: 21 0RF Rx Instructions: orally per package directions triamcinolone acetonide 0.5 % ointment 1 applic topical BID Qty: 15 0RF No Action propranolol 20 mg tablet 20 mg PO BID PRN (Reason: anxiety) Qty: 60 2RF buprenorphine-naloxone 8-2 mg film 1 film sublingual TID Qty: 90 2RF hydroxyzine HCl 50 mg tablet 50 mg PO QID PRN (Reason: anxiety) Qty: 120 2RF gabapentin 400 mg capsule 400 mg PO TID Qty: 90 11RF paroxetine HCl [Paxil] 40 mg tablet 40 mg PO QPM Discharge Orders: Discharge ED (Routine); Ordered 10/06/24 Ordered By: Bay Ovalle Referrals: Asif Murrieta MD [Primary Care Provider, Family Practice] Discharge Diet: Usual diet Discharge Activity: Resume usual activity Patient Instructions: Opioid Safety, Pain Management, Patient Portal & [place] Instructions Activity Restrictions/Additional Instructions: Thank you for choosing [facility] for your healthcare needs today. It is very important that you follow up as instructed or that you return to the Emergency Department should you have concerns or if your condition changes or worsens in any way. You were seen in the emergency room after insect bites your lower extremities. Would avoid pouring any more gasoline on the skin. Instead recommend you use triamcinolone apply the steroid ointment twice a day until your symptoms have resolved. Additionally you can use Zyrtec (sertraline) 10 mg 1 pill twice a day. We also gave you an oral steroid pack to take beginning this evening. Print Language: Sammarinese Coding Level of Care Code ED Slag Skimmer for Manda Holguin
[2024-10-06] MEDS: diphenhydrAMINE 50 mg/mL SDV 1mL IVP (16:06)
[2024-10-06] MEDS: methylPREDNISolone sod succ 125 mg/2 mL INJ IVP (16:06)
== END 2024-10-06 16:33 | disposition home or self-care (01) ==
PROVIDERS: Emergency Provider Family Medicine; PCP Family Medicine
DX: S80.862A Insect bite (nonvenomous), left lower leg, initial encounter (principal); S80.861A Insect bite (nonvenomous), right lower leg, initial encounter; W57.XXXA Bitten or stung by nonvenomous insect and other nonvenomous arthropods, initial encounter
CPT/HCPCS: 96374; 96375; 99284; J1200; J2919

== ENCOUNTER → 2025-01-23 11:49 | Outpatient (BNVA) | payer OTHER, SELFPAY | PROVIDERS: PCP Family Medicine; Visit Provider Psychiatry & Neurology Psychiatry | DX: F11.91 Opioid use, unspecified, in remission (principal); Z79.899 Other long term (current) drug therapy; F15.21 Other stimulant dependence, in remission | CPT/HCPCS: 80307 ==